=== PATIENT | female | born 1945 | race Caucasian/White ===

== ENCOUNTER 2024-08-30 15:51 | Emergency (ER) | payer OTHER ==
[2024-08-30 16:12] VITALS: BP 145/76; PULSE 74; RESP 17; TEMP 97.4; BMI 27.3
[2024-08-30] MEDS ORDERED: ACETAMINOPHEN 325 MG TABLET (FP) ONE (16:36)
[2024-08-30] MEDS: ACETAMINOPHEN 500 MG TABLET (FP) PO ONE (16:38)
[2024-08-30 17:05] LABS: EPITHELIAL CELLS 0-5 /hpf
[2024-08-30] MEDS ORDERED: CEPHALEXIN MONOHYDRATE 500 MG CAPSULE (UD) ONE (17:10)
[2024-08-30] MEDS: CEPHALEXIN MONOHYDRATE 500 MG CAPSULE (UD) PO ONE (17:14)
== END 2024-08-30 17:14 | disposition home or self-care (01) ==
LOC: FER 15:51
DX: R10.31 Right lower quadrant pain (principal); N34.2 Other urethritis
CPT/HCPCS: 81003; 81015; 87086; 87186; 99283-25